=== PATIENT | female | born 1950 | race Caucasian/White ===

== ENCOUNTER 2017-04-26 13:57 | Emergency (ER) | payer OTHER, BC ==
[~2017-04-26] VITALS: Ht 167.6 cm; Wt 84.1 kg
[2017-04-26 16:29] LABS: ADD MIUA? NO; BILIRUBIN NEGATIVE; BLOOD NEGATIVE; COLOR STRAW ((YELLOW)); GLUCOSE (STRIP) NEGATIVE; KETONES NEGATIVE; LEUKOCYTES NEGATIVE; NITRITE NEGATIVE; PROTEIN (STRIP) NEGATIVE; SPECIFIC GRAVITY 1.004 (1.000-1.030); UCUL ADDED? NO; UROBILINOGEN 0.2 MG/DL (0.2-1.0)
[2017-04-26 16:31] LABS: HEMATOCRIT 40.3 % (36.0-46.0); MCH 29.8 PG (29.0-34.0); MCHC 34.2 G/DL (30.0-36.0); MEAN PLAT.VOLUME 10.1 uM^3 (9.5-12.4); PLATELET COUNT 250 K/uL (156-360); RBC DIS.WIDTH-CV 11.9 % (11.8-14.6); RBC DIS.WIDTH-SD 38.4 % (39-53); RED BLOOD COUNT 4.63 M/uL (3.80-5.20)
[2017-04-26 16:40] LABS: D-DIMER ELISA < 150.00 ng/mLDDU (<230)
[2017-04-26 16:41] LABS: CHLORIDE 107 mEq/L (99-109); POTASSIUM 4.5 mEq/L (3.7-5.4); SODIUM 143 mEq/L (136-147)
[2017-04-26 16:42] LABS: GLUCOSE 92 mg/dL (70-99)
[2017-04-26 16:44] LABS: ANION GAP 12 MEQ/L (2-14)
[2017-04-26 16:46] LABS: GFR ESTIMATE (CALCULATED) > 59 mL/min/
[2017-04-26 16:47] LABS: UREA NITROGEN (BUN) 12 mg/dL (9-23)
[2017-04-26 17:20] LABS: TROP-I INTERPRETATION NEGATIVE; TROPONIN-I < 0.01 ng/mL (0.0-0.30)
[2017-04-26 18:36] VITALS: BP 173/101
== END 2017-04-26 18:37 | disposition home or self-care (01) ==
LOC: EME 13:57
PROVIDERS: Physician Assistant
DX: I10 Essential (primary) hypertension (principal); N39.0 Urinary tract infection, site not specified; Z88.0 Allergy status to penicillin; Z88.8 Allergy status to other drugs, medicaments and biological substances
CPT/HCPCS: 80048; 81003; 84484; 85027; 85379; 93005; 99281; 99283